=== PATIENT | female | born 1990 | race African-American/Black ===

== ENCOUNTER 2016-12-18 13:44 | Emergency (ER) | payer MEDICAID, OTHER ==
[~2016-12-18] VITALS: Ht 175.3 cm; Wt 84.0 kg
[~2016-12-18 13:44] MED LIST: PRENATALS
[2016-12-18] MEDS ORDERED: SODIUM CHLORIDE 0.9% 250 ML IV ONE (14:58)
[2016-12-18 15:39] LABS: BASOPHILS % 0.4 % (0.0-2.0); CHLORIDE 103 mEq/L (98-107); EOSINOPHILS % 0.3 % (0.0-5.0); HEMATOCRIT. 37.1 % (36.0-48.0); HEMOGLOBIN. 12.3 g/dL (12.0-16.0); LYMPHOCYTES % 8.1 % (20.0-50.0); MEAN CORPUSCULAR HEMOGLOBIN 28.5 pg (28.0-32.0); MEAN CORPUSCULAR VOLUME 85.8 fL (81.0-99.0); MEAN PLATELET VOLUME 8.8 fl (7.4-10.4); MONOCYTES % 14.2 % (2.0-8.0); PLATELET 199 x1000/uL (130-400); RED BLOOD CELL COUNT 4.32 mill/uL (4.2-5.4); RED CELL DISTRIBUTION WIDTH 14.3 % (11.6-14.6)
[2016-12-18 15:43] LABS: CARBON DIOXIDE 27 mEq/L (21-32)
[2016-12-18 16:00] LABS: HCG SCREEN INDETERMINATE
[2016-12-18] MEDS ORDERED: SODIUM CHLORIDE 0.9% 1,000 ML IV ONE (17:15)
[2016-12-18] MEDS ORDERED: ACETAMINOPHEN 325MG TABLET PO ONE (17:15)
[2016-12-18] MEDS ORDERED: ONDANSETRON HCL 4MG/2ML VIAL IV ONE (17:15)
[2016-12-18 18:16] LABS: CLARITY URINE CLOUDY (CLEAR); COLOR URINE YELLOW (YELLOW); GLUCOSE URINE NEGATIVE (NEGATIVE); KETONES URINE TRACE (NEGATIVE); LEUKOCYTE ESTERASE URINE NEGATIVE (NEGATIVE); NITRITE URINE NEGATIVE (NEGATIVE); OCCULT BLOOD URINE 1+ (NEGATIVE); PROTEIN URINE TRACE (NEGATIVE); SPECIFIC GRAVITY URINE 1.021 (1.005-1.030)
[2016-12-18 23:00] VITALS: BP 120/85
== END 2016-12-19 00:21 | disposition home or self-care (01) ==
LOC: ER 14:20
DX: R55 Syncope and collapse (principal); R42 Dizziness and giddiness; R50.9 Fever, unspecified; M79.1 Myalgia
CPT/HCPCS: 36415; 71010; 80048; 81001; 84702; 84703; 85025; 87070; 87430; 93005; 96361; 96374; 99285; J2405; J7030; Z7610; J7050

== ENCOUNTER 2017-08-27 18:06 | Emergency (ER) | payer SELFPAY ==
[~2017-08-27] VITALS: Ht 172.7 cm; Wt 87.0 kg
[2017-08-27 19:24] LABS: BASOPHILS % 0.7 % (0.0-2.0); EOSINOPHILS % 1.9 % (0.0-5.0); HEMATOCRIT. 38.5 % (36.0-48.0); HEMOGLOBIN. 12.8 g/dL (12.0-16.0); LYMPHOCYTES % 26.8 % (20.0-50.0); MEAN CORPUSCULAR HEMOGLOBIN 29.6 pg (28.0-32.0); MEAN CORPUSCULAR VOLUME 88.9 fL (81.0-99.0); MEAN PLATELET VOLUME 8.9 fl (7.4-10.4); MONOCYTES % 6.4 % (2.0-8.0); NEUTROPHILS % 64.2 % (40.0-76.0); PLATELET 224 x1000/uL (130-400); RED BLOOD CELL COUNT 4.33 mill/uL (4.2-5.4); RED CELL DISTRIBUTION WIDTH 14.5 % (11.6-14.6)
[2017-08-27 19:29] LABS: CHLORIDE 108 mEq/L (98-107)
[2017-08-27 19:33] LABS: INR 1.1; PARTIAL THROMBOPLASTIN TIME 26.6 sec (23.4-31.0); PROTHROMBIN TIME 11.1 sec (9.4-11.6)
[2017-08-27 21:24] VITALS: BP 147/99
== END 2017-08-27 22:10 | disposition home or self-care (01) ==
LOC: ER 18:53
DX: R07.89 Other chest pain (principal)
CPT/HCPCS: 36415; 71045; 80053; 83690; 84484; 85025; 85610; 85730; 93005; 99285; Z7610